=== PATIENT | female | born 1990 ===

== ENCOUNTER 2022-06-18 09:44 | Outpatient (CLI) | payer OTHER | END 2022-06-18 09:45 | disposition home or self-care (01) | LOC: SONOGRAMA 09:44 | DX: Q61.2 Polycystic kidney, adult type (principal); N20.0 Calculus of kidney ==

== ENCOUNTER 2024-02-10 15:35 | Day surgery (SDC) | payer OTHER ==
[2024-02-10 15:35] LABS: HEMATOCRIT 33.2 % (36.0-45.00); HEMOGLOBIN 11.7 g/dL (12.0-15.00); MEAN CELL VOLUME 87.1 fL (80.00-100.00); MEAN CORPUSCULAR HEMOGLOBIN 30.8 pg (27.00-32.0); MEAN CORPUSCULAR HGB CONC 35.3 g/dl (32.0-36.0); PLATELET COUNT 274 K/uL (150-450); RED BLOOD COUNT 3.81 M/uL (4.00-6.00); RED CELL DISTRIBUTION WIDTH 12.6 % (11.5-14.5)
[2024-02-10 16:04] LABS: PARTIAL THROMBOPLASTIN TIME 35.1 SECONDS (22.0-34.0); PROTHROMBIN TIME 10.5 SECONDS (9.0-11.5)
[2024-02-10 16:09] LABS: BILIRUBIN TOTAL 0.32 mg/dL (0.3-1.2); CALCIUM 9.2 mg/dL (8.5-10.1); CREATININE SERUM 0.52 mg/dL (0.55-1.02); GFR 131.97; GLOBULINA 2.9 G/DL (2.4-3.5); POTASSIUM 3.93 mEq/L (3.5-5.1); TOTAL PROTEIN 6.9 gm/dL (6.4-8.2)
[2024-02-10] MEDS ORDERED: CEFOXITIN SODIUM 2,000 MG VIAL IV ONE (16:24)
[2024-02-10] MEDS ORDERED: POVIDONE-IODINE 118 ML BOTT TOP ONE (16:25)
[2024-02-10] MEDS ORDERED: METHYLERGONOVINE MALEATE 0.2 MG/ML AMPUL ONE (18:07)
[2024-02-10] MEDS ORDERED: PROMETHAZINE HCL 50 MG/ML AMPUL IM ONE (18:30)
[2024-02-10] MEDS ORDERED: MORPHINE SULFATE 4 MG/ML VIAL IV PRN (18:30)
== END 2024-02-10 20:10 | disposition home or self-care (01) ==
LOC: CIR.AMB 15:35
PROVIDERS: ATTEND Obstetrics & Gynecology Maternal & Fetal Medicine
DX: O02.1 Missed abortion (principal); O72.2 Delayed and secondary postpartum hemorrhage